=== PATIENT | female | born 1995 | race Caucasian/White ===

== ENCOUNTER → 2017-04-22 16:41 | Outpatient (CLI) | payer OTHER, SELFPAY ==
[2017-04-22 18:39] LABS: Internal QC Validated? YES +Cl - CLEAR BKGD; Pregnancy, Urine Negative Negative
== END ==
PROVIDERS: Family Provider Family Medicine; PCP Family Medicine; Visit Provider Dermatology
DX: Z79.899 Other long term (current) drug therapy (principal); L70.0 Acne vulgaris; L23.3 Allergic contact dermatitis due to drugs in contact with skin
CPT/HCPCS: 81025

== ENCOUNTER → 2017-05-24 13:34 | Outpatient (CLI) | payer OTHER, SELFPAY ==
[2017-05-24 15:27] LABS: Internal QC Validated? YES +Cl - CLEAR BKGD; Pregnancy, Urine Negative Negative
== END ==
PROVIDERS: Family Provider Family Medicine; PCP Family Medicine; Visit Provider Dermatology
DX: Z79.899 Other long term (current) drug therapy (principal); L70.0 Acne vulgaris; L23.3 Allergic contact dermatitis due to drugs in contact with skin
CPT/HCPCS: 81025

== ENCOUNTER → 2017-07-01 12:09 | Outpatient (CLI) | payer OTHER, SELFPAY ==
[2017-07-01 14:16] LABS: Internal QC Validated? YES +Cl - CLEAR BKGD; Pregnancy, Urine Negative Negative
== END ==
PROVIDERS: Family Provider Family Medicine; PCP Family Medicine; Visit Provider Dermatology
DX: Z79.899 Other long term (current) drug therapy (principal); L70.0 Acne vulgaris; L23.3 Allergic contact dermatitis due to drugs in contact with skin
CPT/HCPCS: 81025

== ENCOUNTER → 2017-08-09 10:25 | Outpatient (CLI) | payer OTHER, SELFPAY ==
--- NOTE | 2017-08-09 10:25 | DT_ITS ---
This patient was seen during an EMR downtime August 09, 2017 - August 16, 2017. This patient may have a combination of paper and electronic documentation or all paper documentation. All documentation is viewable within the e-chart portion of [employer] for each patient visit.
[2017-08-12 18:23] LABS: Internal QC Validated? YES +Cl - CLEAR BKGD; Pregnancy, Urine Negative Negative
== END ==
PROVIDERS: Family Provider Family Medicine; PCP Family Medicine; Visit Provider Dermatology
DX: L70.0 Acne vulgaris (principal); L23.3 Allergic contact dermatitis due to drugs in contact with skin; Z79.899 Other long term (current) drug therapy
CPT/HCPCS: 81025

== ENCOUNTER 2020-02-26 09:28 | Day surgery (SDC) | payer OTHER, SELFPAY ==
[2020-02-26] VITALS (7 sets, daily range): BP systolic 105–130; BP diastolic 66–86; PULSE 78–86; RESP 16–18; TEMP 36.6–37.2; O2SAT 96–100; BMI 35.1
--- NOTE | 2020-02-26 | TONS_PTH ---
PATIENT: SHARON MELENDEZ [place] [facility] [place][id number] AGE/SX: 24/F ROOM: RE02/26/[address]: Dr. Raymon Magaña MD : 1995 BED: DIS: 02/26/2020 SPEC #: [id number] RECD: 02/26/20 12:56 STATUS: TACHO [place] #: [id number] CLARISSA: 02/26/20 00:[address]: Raymon Magaña DEPT: SURGICAL PATHOLOGY RECD BY: Sang Bolaños ENTERED: 02/26/20 12:56 SP TYPE: TONSILS OTHR DR: Dr. Lou Guerrero MD Tissues: Tonsil, NOS Procedures: Surgery Specimen Level III HEADER OPERATION: Tonsillectomy PRE-OP DIAGNOSIS: Chronic tonsillitis, tonsillar hypertrophy, tonsillar calculus TISSUE SUBMITTED: Tonsils (tie on right) MICROSCOPIC DIAGNOSIS Bilateral tonsils, tonsillectomy: Reactive lymphoid hyperplasia, consistent with chronic tonsillitis. Focal actinomyces colonization. NITESH:teresa 02/27/20 MICROSCOPIC DESCRIPTION Slides are reviewed. GROSS DESCRIPTION Received is one container labeled with the patient's name and designated tonsils - tie on right are two tonsils that in aggregate weigh 10.8 gm. The right tonsil has a tie on it and measures 3 x 2.5 x 1.5 cm. The left tonsil measures 3.2 x 2 x 1.5 cm. Both tonsils are similar in appearance. The external surfaces are pink-coulter, smooth, glistening and somewhat lobulated. Focally they are hemorrhagic, granular and bear cautery artifact. Serial cross sections through the tonsils reveal normal tonsillar architecture. Sections are submitted in two cassettes as follows: 1 - right tonsil, 2 - left tonsil. / NITESH:teresa 02/26/20 TC:3 CPT: 40225 x2
[2020-02-26 09:52] LABS: Internal QC Validated? YES +Cl - CLEAR BKGD; Pregnancy, Urine Negative Negative
--- NOTE | 2020-02-26 09:53 | DCINST_ITS ---
Discharge Diet: Soft diet Discharge Activity: Return to Normal Activity Additional Activity Instructions:: Soft diet x 2 weeks Allergies/Adverse Reactions: Allergies No Known Allergies Allergy (Verified 02/26/20 09:49) Medications to take at Discharge No Known/Unobtainable [No Known Home Medications] 03/21/14 Primary Care Physician: Lou Guerrero MD [Primary Care Provider] - Test Results: Test results from this visit will be discussed in further detail at your follow- up appointment, if applicable.
[2020-02-26] MEDS: Lactated Ringers 1,000 ML 100 ML IV (10:06)
[2020-02-26] MEDS: Bupivacaine Mpf 0.5% 30 ML VIAL (10:18)
--- NOTE | 2020-02-26 10:58 | PCM.OPRPT ---
Report of Operation Date of Procedure: 02/26/20 Pre-Operative Diagnosis: chronic tonsillitis. tonsillar hypertrophy. tonsil stones Post-Operative Diagnosis: same Surgery/Procedure Performed:: tonsillectomy Description of Surgical Findings:: 3+ tonsils Type of Anesthesia:: General Anesthesiologist: Ted Khan Specimen's removed: tonsils Estimated Blood Loss (mL): minimal Description of Procedure: The patient was taken to the OR on 02/26/2020. The patient was placed in the supine position on the OR table. The patient was given sufficient general endotracheal anesthesia. The table was turned 90 degrees clockwise. A Anthony mouthgag was inserted into the patient's mouth. The patient was suspended on a Mohan stand. The adenoid was inspected with a mirror and found to be small. It was left alone. The right tonsil was grasped with an Allis clamp and removed using a bovie cautery. Absolute hemostasis was achieved using suction cautery. The left tonsil was grasped with an Allis clamp and removed using a bovie cautery. Absolute hemostasis was achieved using suction cautery. .5% marcaine was placed on an adenoid sponge and placed in each tonsillar fossa for one minute on each side and then removed. The gag was closed. It was re opened to inspect for bleeding and there was none. The gag was then removed. The patient was then awoken and brought to the recovery room in stable condition. Blood loss minimal, replacement none. Sponge, needle and instrument count were correct at the end of the procedure.
[2020-02-26] MEDS: HYDROcodone Bitartrate/Apap 5/325 Tablet PO (12:23)
== END 2020-02-26 13:15 | disposition home or self-care (01) ==
LOC: SDC 09:29 → AC 09:30
PROVIDERS: Anesthesiology; PCP Internal Medicine; Referring Provider Otolaryngology; Visit Provider Otolaryngology
PROC: (CPT 42826; principal; 2020-02-26 10:45)
DX: J35.01 Chronic tonsillitis (principal); J35.8 Other chronic diseases of tonsils and adenoids; Z20.828 Contact with and (suspected) exposure to other viral communicable diseases
CPT/HCPCS: 00170; 42826; 81025; 87426; 88304; C9803; J7120; J2405